=== PATIENT | female | born 1990 | race Caucasian/White ===

== ENCOUNTER 2017-07-18 14:45 | Outpatient (CLI) | payer BC, SELFPAY ==
[2017-07-18 15:11] VITALS: BMI 29.2
[2017-07-18 16:06] LABS: Hematocrit 34.4 % (37-47); Hemoglobin 11.5 g/dl (12.0-15.0); Mean Corp Hgb Conc 33.4 g/gl (32-36); Mean Corpuscular Hgb 28.5 pg (27.0-32.0); Mean Corpuscular Volume 85.4 fL (81-99); Mean Platelet Vol. 11.7 fl (6.2-12.0); Platelet Count 142 K/mm3 (150-450); RBC Distribution Width CV 13.2 % (11.6-14.6); RBC Distribution Width SD 39.8 fl (35.1-43.9); Red Blood Count 4.03 M/mm3 (4.2-5.4); White Blood Count 14.2 K/mm3 (4.4-11.0)
[2017-07-18 16:07] LABS: Scan Indicated on CBC? Y/N NO
[2017-07-18 16:18] LABS: Prothrombin Time (Protime)PT. 13.4 SECONDS (11.7-14.9)
[2017-07-18 16:19] LABS: AST(SGOT) 21 U/L (15-37); Alanine Aminotransfer ALT/SGPT 23 U/L (13-56); Creatinine, Serum 0.77 mg/dL (0.55-1.02); EST Glomerular Filtration Rate 96 mL/min (>60); Est Glom Filt Rate - Afr Amer 117 mL/min (>60); Estimated Creatinine Clearance 104.56 ml/min; Partial Thromboplast Time 30.9 Seconds (24.1-36.2)
[2017-07-18 17:49] LABS: Protein, Urine (Random) 15.6 mg/dL (<11.9); Protein:Creat Ratio 174 mg/g CRE (0-200)
--- NOTE | 2017-07-18 18:12 | OB.TRI.NOTE ---
History of Present Illness Date of Service: 07/18/17 Was patient seen by the physician?: Yes Reason For Visit: R/O [facility] Date of Service: 07/18/17 Final SHYANNE: 08/12/17 Gestational age: 36 Weeks and 3 Days History of Present Illness: 26-year-old female presents for evaluation due to elevated blood pressures in the office. She denies any headache, visual changes, or epigastric pain. Home Medications Medication Instructions Recorded Multivitamin For Skin/Nails/Hair 2 tab PO DAILY 03/07/15 Norgestimate-Ethinyl Estradiol 1 each PO DAILY 03/07/15 [Sprintec 28 Day Tablet] Valacyclovir HCl [Valtrex] 500 mg PO DAILY 03/07/15 Metronidazole 500 mg PO Q8 #21 tablet 03/09/15 Ondansetron [Zofran] 8 mg PO Q8H PRN PRN #12 tablet 03/09/15 levoFLOXacin tablet [Levaquin] 750 mg PO DAILY 7 Days tablet 03/09/15 Acyclovir 400 mg PO TID 07/18/17 Vits [Prenatabs FA ] 1 tab PO DAILY 07/18/17 Allergies amoxicillin [Amoxicillin] Allergy (Verified 03/07/15 22:52) Hives Sulfa (Sulfonamide Antibiotics) Allergy (Verified 07/16/13 07:12) Hives Physical Exam General: Alert, Cooperative, No apparent distress Abdomen: Soft, Non Tender, Non-Distended, Gravid, Appropriate for Gestational Age Extremities:: Other - 1+ edema, 2_+ DTRS, no clonus Estimated gestational size: Appropriate for gestational size Presentation: Cephalic NST - FHR Rate Baby A Baseline: 140 Variability:: Moderate Accelerations:: 15 x 15 Decelerations:: None NST Reactive:: Yes FHR Category:: Category I Uterine Activity:: irritability Impression/Plan 26-year-old female 1 at 36-3/7 weeks gestation with intermittently elevated blood pressures. Laboratory these are normal pending urine results. Evidence of severe preeclampsia. Have mild gestational hypertension. Discussed with her signs and symptoms of preeclampsia. Will follow closely. Recommend growth ultrasound in the office within the next 3-5 days. Patient is comfortable and agrees with plan.
== END 2017-07-18 17:50 | disposition home or self-care (01) ==
LOC: WPOUT 14:55 → WP 14:56
PROVIDERS: Family Provider Internal Medicine; PCP Internal Medicine; Visit Provider Obstetrics & Gynecology
DX: O13.3 Gestational [pregnancy-induced] hypertension without significant proteinuria, third trimester (principal); O12.03 Gestational edema, third trimester; Z3A.36 36 weeks gestation of pregnancy
CPT/HCPCS: 36415; 59025; 59050; 82565; 82570; 84156; 84450; 84460; 84550; 85027; 85610; 85730; 99218; A4216; G0378

== ENCOUNTER 2017-07-22 10:08 | Inpatient (IN) | payer BC, SELFPAY ==
[2017-07-22 10:13] VITALS: BMI 28.8
[2017-07-22] MEDS: Lactated Ringers 1,000 ML 50 ML IV (10:40)
[2017-07-22 11:08] LABS: Hematocrit 34.5 % (37-47); Hemoglobin 11.4 g/dl (12.0-15.0); Mean Corpuscular Hgb 28.1 pg (27.0-32.0); Mean Corpuscular Volume 85.2 fL (81-99); Mean Platelet Vol. 12.4 fl (6.2-12.0); Platelet Count 143 K/mm3 (150-450); RBC Distribution Width CV 13.1 % (11.6-14.6); RBC Distribution Width SD 40.2 fl (35.1-43.9); Red Blood Count 4.05 M/mm3 (4.2-5.4); White Blood Count 12.6 K/mm3 (4.4-11.0)
[2017-07-22 11:09] LABS: Scan Indicated on CBC? Y/N NO
[2017-07-22 11:20] LABS: Prothrombin Time (Protime)PT. 13.5 SECONDS (11.7-14.9)
[2017-07-22 11:21] LABS: Partial Thromboplast Time 30.7 Seconds (24.1-36.2)
[2017-07-22 11:29] LABS: AST(SGOT) 19 U/L (15-37); Alanine Aminotransfer ALT/SGPT 18 U/L (13-56); Creatinine, Serum 0.82 mg/dL (0.55-1.02); EST Glomerular Filtration Rate 90 mL/min (>60); Est Glom Filt Rate - Afr Amer 109 mL/min (>60); Estimated Creatinine Clearance 98.18 ml/min; Uric Acid 5.6 mg/dL (2.6-6.0)
[2017-07-22] MEDS: miSOPROStol 25 MCG TABLET PO ×4 (11:52→23:59)
[2017-07-22 12:40] LABS: Protein, Urine (Random) 17.1 mg/dL (<11.9); Protein:Creat Ratio 175 mg/g CRE (0-200)
--- NOTE | 2017-07-22 19:11 | PCM.HP.OB ---
- Problem List (1) Gestational hypertension Status: Acute Qualifiers: Trimester: third trimester Qualified Code(s): O13.3 - Gestational [-induced] hypertension without significant proteinuria, third trimester (2) Encounter for induction of labor Status: Acute (3) Status: Acute (4) Herpes genitalis in women Status: Chronic Comment: On chronic suppression valtrex, no outbreak x > 1 year. (5) Positive GBS test Status: Acute History Date of Admission: 07/22/17 Final SHYANNE: 08/12/17 Final SHYANNE Source: LMP Gestational age: 37 Weeks and 0 Days History of this : 26 year old at 37w by LMP, confirmed by 1st trimester U/S. Presented to office visit today with elevated BP of 137/100 and decision was made for IOL due to gestational HTN. OB Hx: History of Spontaneous in first trimester Allergies amoxicillin [Amoxicillin] Allergy (Verified 03/07/15 22:52) Hives Sulfa (Sulfonamide Antibiotics) Allergy (Verified 07/16/13 07:12) Hives Current Medications Acetaminophen (Tylenol) 325 - 650 mg PO Q4H PRN PRN PRN Reason: PAIN OR FEVER >100.4F Al Hydroxide/Mg Hydroxide (Mylanta Ii) 15 - 30 ml PO Q4H PRN PRN PRN Reason: INDIGESTION Citric Acid/Sodium Citrate (Bicitra) 30 ml PO UD PRN Lactated Ringer's () 1,000 mls @ 50 mls/hr IV .Q20H [facility] Last Admin: 07/22/17 10:40 Dose: 50 mls/hr Oxytocin/Sodium Chloride () 30 units in 500 mls @ 1 mls/hr IV .Q500H [facility] Last Admin: 07/22/17 14:08 Dose: Not Given Clindamycin Phosphate (Cleocin) 900 mg in 50 mls @ 75 mls/hr IV Q8H [facility] Last Admin: 07/22/17 16:47 Dose: Not Given Misoprostol (Cytotec) 25 mcg PO Q4H [facility] Stop: 07/23/17 07:31 Last Admin: 07/22/17 15:35 Dose: 25 mcg Nalbuphine HCl (Nubain) 5 - 10 mg IV Q3H PRN PRN PRN Reason: PAIN (4-10/10) Ondansetron HCl (Zofran) 4 mg IV Q8H PRN PRN PRN Reason: NAUSEA Promethazine HCl (Phenergan Iv) 6.25 - 12.5 mg IV Q4H PRN PRN; Protocol PRN Reason: IF NAUSEA PERSISTS Sodium Chloride () 5 - 15 ml IV UD [facility] Last Admin: 07/22/17 13:59 Dose: Not Given Smoking Status: Never smoker Alcohol: None Drug Use: none Number of Fetus(es): 1 Review of Systems Constitutional: Denies: Chills, Fever, Weight Change Cardiovascular: Denies: Chest Pain, Palpitations Respiratory: Denies: Cough, Shortness of breath at rest, Sputum production Gastrointestinal: Denies: Abdominal Pain, Nausea, Vomiting Genitourinary: Denies: Dysuria Physical Exam Vitals: FHT 125, moderate variability, accels, no decels TOCO: every 3-5 minutes, mild to palpation. Unable to feel contractions Labs: GC/CG negative GBS positive A positive, antibody screen negative RPR negative Rubella immune HBsAG negative HIV negative General: Alert, Oriented x3, No apparent distress Cardiovascular: Regular rate, Regular Rhythm, No murmurs Lungs: Clear to auscultation, No rhonchi, No wheeze Abdomen: Bowel Sounds Present, Gravid Extremities:: No edema, Deep tendon reflexes - +1/4 bilateral patellar, clonus negative Presentation: Cephalic Cervix Dilation (cm): 1 Station: -2 Effacement (%): 50 Assessment/Plan Active and Suspected Problems Gestational hypertension (Acute) Encounter for induction of labor (Acute) (Acute) Positive GBS test (Acute) A:26 year old at 37 weeks for IOL due to Gestational Hypertension GBS positive Genital Herpes P: 1) Admit to L&D with routine orders 2) Cytotec IOL 3) GBS antibiotic prophylaxis to start once Oxytocin infusion started. Allergic to amoxicillin. Clindamycin for prophylaxis. 4) collaborative physician for management. 5) Pre-E labs 6) EKG and CMP due to episode of bradycardia to 37. Carito Guillen CNM
--- NOTE | 2017-07-22 19:18 | EKG12_ITS ---
Test Reason : RHYTHM CHANGE Blood Pressure : / mmHG Vent. Rate : 078 BPM Atrial Rate : 078 BPM P-R Int : 112 ms QRS Dur : 080 ms QT Int : 350 ms P-R-T Axes : 067 026 053 degrees QTc Int : 399 ms Sinus rhythm with occasional Premature ventricular complexes and Fusion complexes Otherwise normal ECG No previous ECGs available Confirmed by CASANDRA MENSAH, PAOLA ([id number]), film and video editor RENETTA HORTA ([id number] on 07/30/2017 1:34:05 PM Referred By: RAUL Confirmed By:PAOLA GUAJARDO MD
--- NOTE | 2017-07-22 19:27 | HP.PCM_ITS ---
- Problem List (1) Gestational hypertension Status: Acute Qualifiers: Trimester: third trimester Qualified Code(s): O13.3 - Gestational [ -induced] hypertension without significant proteinuria, third trimester (2) Encounter for induction of labor Status: Acute (3) Status: Acute (4) Herpes genitalis in women Status: Chronic Comment: On chronic suppression valtrex, no outbreak x > 1 year. (5) Positive GBS test Status: Acute History Date of Admission: 07/22/17 Final SHYANNE: 08/12/17 Final SHYANNE Source: LMP Gestational age: 37 Weeks and 0 Days History of this : 26 year old at 37w by LMP, confirmed by 1st trimester U/S. Presented to office visit today with elevated BP of 137/100 and decision was made for IOL due to gestational HTN. OB Hx: History of Spontaneous in first trimester Allergies amoxicillin [Amoxicillin] Allergy (Verified 03/07/15 22:52) Hives Sulfa (Sulfonamide Antibiotics) Allergy (Verified 07/16/13 07:12) Hives Current Medications Acetaminophen (Tylenol) 325 - 650 mg PO Q4H PRN PRN PRN Reason: PAIN OR FEVER >100.4F Al Hydroxide/Mg Hydroxide (Mylanta Ii) 15 - 30 ml PO Q4H PRN PRN PRN Reason: INDIGESTION Citric Acid/Sodium Citrate (Bicitra) 30 ml PO UD PRN Lactated Ringer's () 1,000 mls @ 50 mls/hr IV .Q20H [facility] Last Admin: 07/22/17 10:40 Dose: 50 mls/hr Oxytocin/Sodium Chloride () 30 units in 500 mls @ 1 mls/hr IV .Q500H [facility] Last Admin: 07/22/17 14:08 Dose: Not Given Clindamycin Phosphate (Cleocin) 900 mg in 50 mls @ 75 mls/hr IV Q8H [facility] Last Admin: 07/22/17 16:47 Dose: Not Given Misoprostol (Cytotec) 25 mcg PO Q4H [facility] Stop: 07/23/17 07:31 Last Admin: 07/22/17 15:35 Dose: 25 mcg Nalbuphine HCl (Nubain) 5 - 10 mg IV Q3H PRN PRN PRN Reason: PAIN (4-10/10) Ondansetron HCl (Zofran) 4 mg IV Q8H PRN PRN PRN Reason: NAUSEA Promethazine HCl (Phenergan Iv) 6.25 - 12.5 mg IV Q4H PRN PRN; Protocol PRN Reason: IF NAUSEA PERSISTS Sodium Chloride () 5 - 15 ml IV UD [facility] Last Admin: 07/22/17 13:59 Dose: Not Given Smoking Status: Never smoker Alcohol: None Drug Use: none Number of Fetus(es): 1 Review of Systems Constitutional: Denies: Chills, Fever, Weight Change Cardiovascular: Denies: Chest Pain, Palpitations Respiratory: Denies: Cough, Shortness of breath at rest, Sputum production Gastrointestinal: Denies: Abdominal Pain, Nausea, Vomiting Genitourinary: Denies: Dysuria Physical Exam Vitals: FHT 125, moderate variability, accels, no decels TOCO: every 3-5 minutes, mild to palpation. Unable to feel contractions Labs: GC/CG negative GBS positive A positive, antibody screen negative RPR negative Rubella immune HBsAG negative HIV negative General: Alert, Oriented x3, No apparent distress Cardiovascular: Regular rate, Regular Rhythm, No murmurs Lungs: Clear to auscultation, No rhonchi, No wheeze Abdomen: Bowel Sounds Present, Gravid Extremities:: No edema, Deep tendon reflexes - +1/4 bilateral patellar, clonus negative Presentation: Cephalic Cervix Dilation (cm): 1 Station: -2 Effacement (%): 50 Assessment/Plan Active and Suspected Problems Gestational hypertension (Acute) Encounter for induction of labor (Acute) (Acute) Positive GBS test (Acute) A:26 year old at 37 weeks for IOL due to Gestational Hypertension GBS positive Genital Herpes P: 1) Admit to L&D with routine orders 2) Cytotec IOL 3) GBS antibiotic prophylaxis to start once Oxytocin infusion started. Allergic to amoxicillin. Clindamycin for prophylaxis. 4) collaborative physician for management. 5) Pre-E labs 6) EKG and CMP due to episode of bradycardia to 37. Carito Guillen CNM
[2017-07-22 20:07] LABS: ALB/GLOB Ratio 0.7 RATIO (0.9-2.4); AST(SGOT) 16 U/L (15-37); Alanine Aminotransfer ALT/SGPT 19 U/L (13-56); Albumin, Serum 2.9 g/dL (3.2-5.0); Alkaline Phosphatase 152 U/L (45-117); Anion Gap 9 (5-15); BUN 8 mg/dL (7-18); BUN/Creat Ratio 9.2 RATIO (10-20); Calcium,Total 8.3 mg/dL (8.5-10.1); Chloride 105 mmol/L (98-107); Creatinine, Serum 0.87 mg/dL (0.55-1.02); EST Glomerular Filtration Rate 84 mL/min (>60); Est Glom Filt Rate - Afr Amer 101 mL/min (>60); Estimated Creatinine Clearance 92.54 ml/min; Globulin 4.4 g/dL (2.2-4.2); Glucose 127 mg/dL (74-106); Potassium 3.5 mmol/L (3.5-5.1); Protein, Total 7.3 g/dL (6.4-8.2); Sodium Level 137 mmol/L (136-145)
[2017-07-22] MEDS: 0.9% Saline Lock 10 ML Syringe IV (23:59)
[2017-07-23] MEDS: miSOPROStol 25 MCG TABLET PO (03:45)
--- NOTE | 2017-07-23 05:08 | PCM.PN.OB ---
Patient Problems: Active and Suspected Problems Gestational hypertension (Acute) Encounter for induction of labor (Acute) (Acute) Positive GBS test (Acute) Subjective: Resting well throughout the night. Feeling contractions and discomfort when they occur. at bedside. Objective: FHT: 125, moderate variability, accels, no decels, Category 1 TOCO: every 3-4minutes, palpate mild to palpation, lasting 60 seconds Cervix: 1cm/60%/-3 Santoyo catheter inserted. - Physical Exam Weight: 179 lb 0.4 oz Body Mass Index (BMI) 28.8 Laboratory Tests Past 24 Hrs 07/22/17 07/22/17 07/22/17 10:40 10:40 10:40 WBC 12.6 H Cancelled Corrected WBC Cancelled RBC 4.05 L Cancelled Hgb 11.4 L Cancelled Hct 34.5 L Cancelled MCV 85.2 Cancelled MCH 28.1 Cancelled MCHC 33.0 Cancelled RDW 13.1 Cancelled RDW Differential 40.2 Cancelled Plt Count 143 L Cancelled MPV 12.4 H Cancelled Diff Path Review Cancelled PT INR APTT Sodium Potassium Chloride Carbon Dioxide Anion Gap BUN Creatinine Estim Creat Clear Calc Est GFR (MDRD) Af Amer Est GFR (MDRD) Non-Af BUN/Creatinine Ratio Glucose Uric Acid Calcium Total Bilirubin AST ALT Alkaline Phosphatase Total Protein Albumin Globulin Albumin/Globulin Ratio U Random Total Protein Urine Creatinine Protein/Creatinin Ratio Blood Type A POSITIVE Antibody Screen NEGATIVE 07/22/17 07/22/17 07/22/17 10:40 10:40 12:10 WBC Corrected WBC RBC Hgb Hct MCV MCH MCHC RDW RDW Differential Plt Count MPV Diff Path Review PT 13.5 INR 1.0 APTT 30.7 Sodium Potassium Chloride Carbon Dioxide Anion Gap BUN Creatinine 0.82 Estim Creat Clear Calc 98.18 Est GFR (MDRD) Af Amer 109 Est GFR (MDRD) Non-Af 90 BUN/Creatinine Ratio Glucose Uric Acid 5.6 Calcium Total Bilirubin AST 19 ALT 18 Alkaline Phosphatase Total Protein Albumin Globulin Albumin/Globulin Ratio U Random Total Protein 17.1 H Urine Creatinine 97.70 Protein/Creatinin Ratio 175 Blood Type Antibody Screen 07/22/17 19:25 WBC Corrected WBC RBC Hgb Hct MCV MCH MCHC RDW RDW Differential Plt Count MPV Diff Path Review PT INR APTT Sodium 137 Potassium 3.5 Chloride 105 Carbon Dioxide 23.0 Anion Gap 9 BUN 8 Creatinine 0.87 Estim Creat Clear Calc 92.54 Est GFR (MDRD) Af Amer 101 Est GFR (MDRD) Non-Af 84 BUN/Creatinine Ratio 9.2 L Glucose 127 H Uric Acid Calcium 8.3 L Total Bilirubin 0.50 AST 16 ALT 19 Alkaline Phosphatase 152 H Total Protein 7.3 Albumin 2.9 L Globulin 4.4 H Albumin/Globulin Ratio 0.7 L U Random Total Protein Urine Creatinine Protein/Creatinin Ratio Blood Type Antibody Screen Medical Necessity - Tobacco Use Smoking Status: Never smoker Assessment/Plan Active and Suspected Problems Gestational hypertension (Acute) Encounter for induction of labor (Acute) (Acute) Positive GBS test (Acute) A:Induction of labor due to gestational HTN Category 1 FHT GBS positive P: 1) Continue with induction of labor 2) Santoyo catheter in place
[2017-07-23] MEDS: Acyclovir 200 MG Capsule 400 MG PO ×3 (08:08→21:34)
--- NOTE | 2017-07-23 08:21 | PCM.PN.BLA ---
Progress Note pt seen at bedside, doing well. Will start pitocin. Santoyo bulb still in place- VE: 1.5/-3. Will start GBS prophylaxis when in active labor. FHR tracing reviewed- category 1.
[2017-07-23] MEDS: Oxytocin 30 units/NS 500 ml 30 UNITS/500 ML IV.SOLN IV (08:26)
[2017-07-23] MEDS: 0.9% Saline Lock 10 ML Syringe IV (08:26)
[2017-07-23] MEDS: Nalbuphine 10 MG/ML Ampul IV (13:19)
--- NOTE | 2017-07-23 15:58 | PCM.PN.BLA ---
Progress Note pt seen at bedside, doing well. pt reports pain after Nubain is only 1-06/08. VE performed -/-2 AROM performed Clear fluid. IUPC placed. continue pitocin.
[2017-07-23] MEDS: Clindamycin 900 MG/50 ML BAG 75 MG IV (16:00)
[2017-07-23] MEDS: fentaNYL-bupivacaine (epidural) 100 ML BAG EPIDURAL ×2 (16:50→20:32)
[2017-07-23] MEDS: Ondansetron 4 MG/2 ML Vial IV (19:45)
[2017-07-23] MEDS: Lactated Ringers 1,000 ML 50 ML IV (21:32)
[2017-07-23] MEDS: Oxytocin 30 units/NS 500 ml 30 UNITS/500 ML IV.SOLN 334 UNITS IV (23:27)
--- NOTE | 2017-07-23 23:35 | PCM.OB.VAG ---
Vaginal Delivery Maternal Presentation: Medically Indicated Induction Method of Induction: Pitocin, Santoyo Bulb, Cytotec Medical Reason for Induction: Gestational Hypertension Amniotic Membrane Rupture Type: Artificial Amniotic Fluid Description: Clear Final SHYANNE: 08/12/17 Final SHYANNE Source: US <20 weeks Gestational age: 37 Weeks and 1 Days Date of Procedure: 07/23/17 Pre-Operative Diagnosis: Gestational HTN Post-Operative Diagnosis: Live male infant Surgery/ Procedure Performed: Spontaneous Vaginal Delivery Type of Anesthesia: Epidural Description of Procedure: of live male delivered in two pushes without complications. Delayed cord clamping performed. Presentation: Vertex Placental Delivery Description: Spontaneous Placenta Disposition: [facility] Cord Vessel Description: 3 Vessels Nuchal Cord Compression: Without compression Cord Entanglement: None Estimated Blood Loss: 200 A gender: Male (1 minute): 8 (5 minute): 9 Episiotomy Description: None Laceration: Vaginal Extension/lac - 3-0 rapide, 1st degree Medications given after delivery: IV Pitocin Complications: None
[2017-07-23] MEDS: Oxytocin 30 units/NS 500 ml 30 UNITS/500 ML IV.SOLN 167 UNITS IV (23:57)
[2017-07-24] MEDS: 0.9% Saline Lock 10 ML Syringe IV (01:05)
[2017-07-24 01:32] VITALS: BP 123/56; PULSE 94; RESP 18; TEMP 37.3; O2SAT 96
[2017-07-24 04:42] VITALS: BP 115/62; PULSE 85; RESP 16; TEMP 36.9
[2017-07-24] MEDS: Ibuprofen 600 MG Tablet PO ×2 (07:51→15:39)
[2017-07-24 08:27] VITALS: BP 103/70; PULSE 81; RESP 16; TEMP 37.1
[2017-07-24 12:00] VITALS: BP 97/56; PULSE 70; RESP 16; TEMP 36.7
--- NOTE | 2017-07-24 13:02 | PCM.PN.BLA ---
Progress Note S: Patient sitting up in bed. Denies any complaints or concerns today. Patient denies ARIZA, scotoma or dizziness. Patient denies any issues with ambulation or urination. Patient reports is going better today, she has worked with email production consultant on latching baby to breast. O: VSS, Afebrile. Patient remains normotensive. H/H = 11.4/34/5 Nipples without cracks or blisters, no erythema noted Abdomen NT x 4 quadrants, FF midline 1FB below umbilicus +2/4 reflexes in LE, no edema, negative calf tenderness to palpation bilaterally perineum well-approximated, scant rubra lochia A: 26 y/o s/p following IOL for GHTN, Normal PP course P: 1) Continue present PP orders 2) Anticipate discharge to home tomorrow. Leia Pa CNM
--- NOTE | 2017-07-24 13:06 | PN_ITS ---
Progress Note S: Patient sitting up in bed. Denies any complaints or concerns today. Patient denies ARIZA, scotoma or dizziness. Patient denies any issues with ambulation or urination. Patient reports is going better today, she has worked with information resource consultant on latching baby to breast. O: VSS, Afebrile. Patient remains normotensive. H/H = 11.4/34/5 Nipples without cracks or blisters, no erythema noted Abdomen NT x 4 quadrants, FF midline 1FB below umbilicus +2/4 reflexes in LE, no edema, negative calf tenderness to palpation bilaterally perineum well-approximated, scant rubra lochia A: 26 y/o s/p following IOL for GHTN, Normal PP course P: 1) Continue present PP orders 2) Anticipate discharge to home tomorrow. Leia Pa CNM
[2017-07-24 15:57] VITALS: BP 108/61; PULSE 73; RESP 16; TEMP 36.6
[2017-07-24 19:50] VITALS: BP 99/51; PULSE 80; RESP 16; TEMP 36.6; O2SAT 99
[2017-07-25 01:05] VITALS: BP 94/53; PULSE 78; RESP 18; TEMP 36.9; O2SAT 99
--- NOTE | 2017-07-25 04:13 | PCM.PN.BLA ---
Progress Note S: Patient sitting up in bed filling out certificate data sheet. Patient reports no issues at this time. Patient successfully able to latch infant on own without difficulty. Patient bonding well with infant and she desires discharge to home today. Denies ARIZA, scotoma, or dizziness. Denies issues with urination or ambulation. O: VSS, Afebrile Nipples without cracks, blisters. Ecchymoses noted on Rt. Nipple. Breast soft and filling Abdomen NT x 4 quadrants, FF midline @ 2FB below umbilicus +2/4 reflexes in LE, no edema, negative calf tenderness to palpation scant rubra lochia, perineum well approximated A: 26 y/o s/p following IOL for GHTN, Normal PP Course P: 1) Discharge patient to home pending discharge 2) Anticipatory health teaching done 3) RTC at 6 weeks PP to [facility] for next visit Leia Pa CNM
--- NOTE | 2017-07-25 04:19 | PN_ITS ---
Progress Note S: Patient sitting up in bed filling out certificate data sheet. Patient reports no issues at this time. Patient successfully able to latch infant on own without difficulty. Patient bonding well with infant and she desires discharge to home today. Denies ARIZA, scotoma, or dizziness. Denies issues with urination or ambulation. O: VSS, Afebrile Nipples without cracks, blisters. Ecchymoses noted on Rt. Nipple. Breast soft and filling Abdomen NT x 4 quadrants, FF midline @ 2FB below umbilicus +2/4 reflexes in LE, no edema, negative calf tenderness to palpation scant rubra lochia, perineum well approximated A: 26 y/o s/p following IOL for GHTN, Normal PP Course P: 1) Discharge patient to home pending discharge 2) Anticipatory health teaching done 3) RTC at 6 weeks PP to [facility] for next visit Leia Pa CNM
[2017-07-25 07:56] VITALS: BP 116/77; PULSE 87; RESP 18; TEMP 36.9; O2SAT 98
== END 2017-07-25 11:30 | disposition home or self-care (01) | DRG 774 ==
PROVIDERS: Admitting Provider Obstetrics & Gynecology; Family Provider Internal Medicine; PCP Internal Medicine; Visit Provider Obstetrics & Gynecology
DX: O13.4 Gestational [pregnancy-induced] hypertension without significant proteinuria, complicating childbirth (principal); O98.32 Other infections with a predominantly sexual mode of transmission complicating childbirth; O71.4 Obstetric high vaginal laceration alone; Z37.0 Single live birth; O99.824 Streptococcus B carrier state complicating childbirth; A60.00 Herpesviral infection of urogenital system, unspecified; Z3A.37 37 weeks gestation of pregnancy
CPT/HCPCS: 59025; 59050; 80053; 82565; 82570; 84156; 84450; 84460; 84550; 85027; 85610; 85730; 86850; 86900; 93005; 99218; J7050; J7120; A4216; G0378; J2405

== ENCOUNTER 2017-07-29 09:30 | Outpatient (CLI) | payer BC, SELFPAY | END 2017-07-29 10:30 | disposition home or self-care (01) | LOC: WPOUT 09:37 → WP 09:38 | PROVIDERS: Family Provider Internal Medicine; PCP Internal Medicine; Visit Provider Obstetrics & Gynecology | DX: R63.3 Feeding difficulties (principal) ==

== ENCOUNTER 2022-11-04 15:17 | Emergency (ER) | payer OTHER, SELFPAY ==
[2022-11-04 15:19] VITALS: BP 129/77; PULSE 98; RESP 16; TEMP 37.1; O2SAT 99; BMI 26.7
--- NOTE | 2022-11-04 15:32 | EX.ED.DYSGE1 ---
HPI History of Present Illness Chief Complaint: Wound Informant: patient and parent Narrative Narrative: Presents here for wound check. 17 days postop ulnar tunnel release with carpal tunnel release right arm followed by Dr. Stella Cross. She had her left carpal tunnel done on the eighth. Follow-up 2 days ago stitch removal was fine. Yesterday noted redness to the right elbow she went to urgent care placed on Keflex 3 times daily was told if not improved to go to the ED. She denies fevers or chills. Denies drainage from site. States more swelling. Is not a diabetic. She discussed with her orthopedic office was told the same thing. Redness progressed therefore came here. Prior similar symptoms: No PFSH PFSH Home Medications vits,calcium no.78-iron fumarate-folic acid 29 mg-1 mg tablet (Prenatabs FA) 1 tab PO DAILY 07/25/17 [Rx Last Taken Unknown] doxycycline hyclate 100 mg capsule 100 mg PO BID #10 caps 11/04/22 [Rx Last Taken Unknown] Allergy/AdvReac Type Severity Reaction Status Date / Time amoxicillin [Amoxicillin] Allergy Hives Verified 11/04/22 15:19 Sulfa (Sulfonamide Allergy Hives Verified 11/04/22 15:19 Antibiotics) Social History Smoking Status: Never smoker ROS ROS ED Constitutional Constitutional ED: Denies chills, fever(s) or sweats Eyes Eyes: Denies change in vision ENT ENT ED: Denies dysphagia or sore throat Cardiovascular Cardiovascular: Denies chest pain, leg edema, palpitations or racing heartbeat Respiratory/Chest Respiratory/Chest: Denies cough, dyspnea or dyspnea on exertion Gastrointestinal Gastrointestinal: Denies abdominal pain, diarrhea, nausea or vomiting Genitourinary Genitourinary ED: Denies dysuria, hematuria or urinary frequency Musculoskeletal Musculoskeletal: Denies back pain, extremity pain or neck pain Integumentary Reports wounds; Denies rash Neurologic Neurologic: Denies headache(s), paresthesias or weakness EXAM Physical Exam Const Vital Signs: 11/04/22 15:19 Temperature 98.7 F Temperature Source Temporal Pulse Rate 98 Respiratory Rate 16 Blood Pressure 129/77 H Blood Pressure Mean 94 Pulse Ox 99 Oxygen Delivery Method Room Air Positive well nourished and well developed General Appearance ED: well developed and NAD HEENT Reports moist mucous membranes normocephalic and atraumatic Eyes PERRL, EOMs intact bilaterally and conjunctivae normal General Eye ED: Yes normal appearance of both eyes Neck no lymphadenopathy and supple General: Negative for tenderness Chest Wall Chest: Negative for tenderness Resp normal respiratory effort and normal air movement Effort and Inspection: symmetric chest movement; Negative for respiratory distress Cardio regular rate, regular rhythm and no murmurs Peripheral Pulses: pulses 2+ throughout GI normal to inspection, nondistended, normoactive bowel sounds and non-tender Palpation: Negative for guarding or rebound tenderness present Back/Spine no CVA tenderness and no thoracic nor lumbar tenderness Extremity Extremity Narrative: Right upper extremity: Elbow suture noted at the cubital tunnel 2 stitches there is surrounding erythema palm-sized up to the mid arm. No streaking to the axilla. There is no fluctuance or active drainage. Wrist examination without erythema. General Extremety ED: Negative for edema or tenderness General Extremity: Negative for edema Neuro oriented x3 and no sensory deficits noted Sensorium / Orientation: awake and alert Skin no rashes or lesions noted and no wounds MDM MDM MDM Narrative Medical decision making narrative: Interventions / MDM: Differential diagnosis: Cellulitis right elbow Diagnosis considered but do not suspect: No clinical septic joint. My EKG interpretation: N/A Imaging independently reviewed and interpreted by myself: N/A External documents reviewed: N/A Test considered but not ordered:N/A ED course: Patient afebrile with no chills or fevers. There is swelling she is able to stand and her elbow there is no pain with range of motion or concern for septic joint. Erythema is now outlined again from a day ago, she will be optimized on the Keflex to 4 times a day she will be started on doxycycline. She will call her orthopedic for follow-up tomorrow. Return precautions. Do not feel blood work is necessary at this time as she clinically stable as plan would be for additional antibiotics currently. All questions answered. Re-evaluation: stable Disposition discussed with patient/family/significant other: Patient and mother Case discussed with consulting clinician: N/A This note was generated with [employer] dictation software. It may contain incorrect words, spelling, and punctuation that were not noted in checking the note before signing. Interventions / MDM: Discharge Plan Triage Chief Complaint: Wound ED Provider: Nam Alvarado Dx/Rx/DC Orders Clinical Impression: Post-operative infection, Cellulitis of right elbow Instructions: ED Cellulitis Prescriptions: New doxycycline hyclate 100 mg capsule 100 mg PO BID Qty: 10 0RF No Action vit,[id number] [Prenatabs FA] 1 TABLET tablet 1 tab PO DAILY 0RF Primary Care Provider: Marycruz Chester Referrals: Marycruz Chester MD [Primary Care Provider] - Stella Cross MD [Non-Staff] - 1 Day Activity Restrictions/Additional Instructions: Optimize your Keflex to 4 times a day. Take doxycycline as prescribed. Call your orthopedics to be seen tomorrow. Return to develop fever chills or drainage with worsening erythema. Disposition Disposition: Home, Self Care
[2022-11-04] MEDS: Doxycycline 100 MG CAPSULE PO (15:40)
== END 2022-11-04 16:10 | disposition home or self-care (01) ==
LOC: ED 16:07
PROVIDERS: Emergency Provider Emergency Medicine; PCP Internal Medicine; Visit Provider Emergency Medicine
DX: T81.40XA Infection following a procedure, unspecified, initial encounter (principal); L03.113 Cellulitis of right upper limb
CPT/HCPCS: 99281; 99283